=== PATIENT | female | born 1970 | race Caucasian/White ===

== ENCOUNTER 2017-12-04 22:41 | Inpatient (IN) | payer BC ==
[~2017-12-04] VITALS: Ht 175.3 cm; Wt 122.4 kg
[~2017-12-04 22:41] MED LIST: ACTOPLUS MET1 TABLET PO; BREO ELLIPTA I1 EACH IH; CALCIUM CITRAT200 MG PO; CELEBREX200 MG PO; CLOTRIMAZOLE AF15 G2 TP; FIBER THERAPY0.52 GM PO; IRON PO; NASONEX17 GM BOTH NARES; SALINE NOSE SPR45 M1 BOTH NARES; STOOL SOFTENER100 MG PO; THERAGRAN1 TABLET PO; TOPROL XL25 MG PO; VENTOLIN HFA18 GM IH; VITAMIN B-122500 MCG SL; VOLTAREN75 MG PO; Vicodin,Lortab 5/500 PO; Zocor PO
[2017-12-05 06:54] VITALS: BP 136/71
== END 2017-12-05 08:20 | disposition home or self-care (01) | DRG 760 ==
LOC: CANRESERV 22:41 → ENRESERV 22:41 → 2SOUTH 12-05 05:25
DX: D25.1 Intramural leiomyoma of uterus (principal); D25.2 Subserosal leiomyoma of uterus; Z53.09 Procedure and treatment not carried out because of other contraindication; R00.8 Other abnormalities of heart beat; J45.909 Unspecified asthma, uncomplicated; E11.9 Type 2 diabetes mellitus without complications; Z98.84 Bariatric surgery status; Z23 Encounter for immunization; E66.01 Morbid (severe) obesity due to excess calories; Z68.41 Body mass index [BMI] 40.0-44.9, adult
CPT/HCPCS: 86850; 86900; 86901; 90686; 93005; J0690; J1100; J2250; J2405; J3010